=== PATIENT | female | born 1960 | race Caucasian/White ===

== ENCOUNTER → 2016-09-10 | Outpatient (CLI) | payer OTHER ==
[~2016-09-10] MED LIST: ACETAMINOPHEN650 M1 PO; AMOXICILLIN 50500 MG PO; ASPIR-TRIN325 MG PO; ASPIRIN81 MG PO; ATIVAN GENERIC0.5 MG PO; ATIVAN1 MG PO; B12 INJ.,1000 MCG/M IM; BUSPAR 5MG TAB5 MG PO; CIPRO 500MG TA500 MG PO; CLONAZEPAM 1MG T1 MG PO; DIAZEPAM2 MG PO; DIOVAN HCT 12.51 TAB PO; EFFEXOR XR150 MG PO; EFFEXOR75 MG PO; FIORICET 325 MG1 TAB PO; FIORICET1 CAP PO; FLAGYL 500MG.500 MG PO; FLEXERIL10 MG PO; FULL CIRCLE BIOT5 MG PO; HYDROCHLOROTHIA25 M1 PO; IMITREX100 MG PO; LODINE400 MG PO; LORTAB 5/500 501 TAB PO; NORCO 325 MG-51 TAB PO; PERCOCET 5/3251 EACH PO; PHENERGAN 25MG.25 M1 PO; PREDNISONE 20MG20 MG PO; PRILOSEC20 M1 PO; PRISTIQ100 MG PO; PRISTIQ50 MG PO; PROPRANOLOL HCL20 MG PO; STOOL SOFTENER240 MG PO; SUDAFED30 MG PO; TRAMADOL50 M1 PO; ULTRAM50 MG PO; VALIUM 5MG TABLE5 MG PO; VICODIN 5/500 T1 TAB PO; VITAMIN D1000 IU PO; ZIAC 5 MG-6.251 TAB PO
--- NOTE | 2016-09-11 17:19 | RADIOLOGY REPORT PS360 ---
DIG MAMM-SCREEN JOSEPH W/CAD CAD Screening COMPARISON: Digital mammograms 08/09/2015 and 07/12/2010 INDICATION: There is a history of breast cancer in the patient's grandmother diagnosed at age 70. TECHNIQUE: Standard CC and MLO images were obtained. R2 CAD reviewed. FINDINGS: The breasts are composed primarily of fat with minimal fibroglandular densities in the subareolar regions bilaterally. There is a stable tiny benign-appearing nodular density upper outer quadrant left breast. However the possible new small asymmetric density central portion of the left breast only definitely seen on MLO view, but it has slightly ill-defined borders. This could be a summation shadow but recommend the patient return for spot compression MLO view and rolled cc views and possibly ultrasound if this proves to be a true lesion. There are no suspicious microcalcifications. There are several small nodes in both axilla. IMPRESSION: Fibrofatty parenchyma with possible new asymmetric density left breast suggest patient return for additional imaging BI-RADS CATEGORY: 0_Incomplete: Need additional imaging RECOMMENDED FOLLOWUP: ADD ADDITIONAL IMAGING (A letter has been sent to the patient regarding results of the study.)
== END ==
LOC: RAD 13:37
DX: Z12.31 Encounter for screening mammogram for malignant neoplasm of breast (principal)
CPT/HCPCS: G0202

== ENCOUNTER → 2017-01-05 | Outpatient (CLI) | payer OTHER ==
[2017-01-05 11:37] LABS: BUN 12 mg/dL (7-18)
[2017-01-05 11:38] LABS: GFR (ESTIMATED) 87 ML/MIN (59-)
== END ==
LOC: LAB 10:00
PROVIDERS: Nurse Practitioner Family
DX: M25.571 Pain in right ankle and joints of right foot (principal); M79.89 Other specified soft tissue disorders; R60.0 Localized edema; R73.9 Hyperglycemia, unspecified